=== PATIENT | male | born 1990 | race Caucasian/White ===

== ENCOUNTER 2021-10-03 15:07 | Emergency (ER) | payer OTHER, SELFPAY ==
[2021-10-03] VITALS (12 sets, daily range): BP systolic 179–259; BP diastolic 114–139; PULSE 89–109; RESP 14–31; TEMP 37; O2SAT 95–99; BMI 30.7
--- NOTE | 2021-10-03 18:32 | DI.RAD.S_ITS ---
PROCEDURE: XR CHEST 1V INDICATIONS: chest pain TECHNIQUE: One view of the chest was acquired. COMPARISON: None. FINDINGS: Surgical changes and devices: None. Lungs and pleura: Lungs are clear. No pleural effusions or pneumothorax. Mediastinum: Mediastinal contours appear normal. Heart size is normal. Bones and chest wall: No suspicious bony lesions. Overlying soft tissues appear unremarkable. IMPRESSION: No acute cardiopulmonary disease process. Dictated by: Geneva Matthews MD, PhD on 10/03/2021 at 17:48 Approved by: Geneva Matthews MD, PhD on 10/03/2021 at 17:50
--- NOTE | 2021-10-03 18:45 | PC.NURSE ---
Patient reports that he had 1-2 nosebleeds a day for 3 days, decided to check his BP at home and saw that it was high, went to [facility] for evaluation of nosebleed and BP. Denies any medical hx, denies taking home meds, denies any other symptoms of elevated BP.
[2021-10-03 18:54] LABS: Prothrombin Time 11.8 SECONDS (10.1-12.7)
[2021-10-03 18:55] LABS: Add Manual Diff / Slide Review NO; Basophils Absolute Auto 0 /uL (0-100); Basophils Percent Auto 0.5 % (0-2); Eosinophils Absolute Auto 100 /uL (0-450); Eosinophils Percent Auto 0.6 % (2-4); Hematocrit 44.6 % (41-53); Hemoglobin 15.4 g/dL (13.5-17.5); Lymphocytes Absolute Auto 2100 /uL (1100-4500); Lymphocytes Percent Auto 22.6 % (25-40); Mean Corpuscular HGB Conc 34.5 % (30-36); Mean Corpuscular Hemoglobin 26.8 PG (26-34); Mean Corpuscular Volume 77.6 fL (80-100); Monocytes Absolute Auto 600 /uL (0-900); Monocytes Percent Auto 6.2 % (3-14); Neutrophils Absolute Auto 6400 /uL (1500-7000); Neutrophils Percent Auto 70.1 % (50-75); Platelet Count 273 X10^3/uL (150-400); Red Blood Cell Count 5.75 X10^6/uL (4.5-5.9); Red Cell Distribution Width 14.2 % (11.6-14.8); White Blood Cell Count 9.1 X10^3/uL (4.5-11.0)
[2021-10-03 18:56] LABS: PTT Partial Thromboplastin Tim 37 SECONDS (26.4-36.2)
[2021-10-03 19:01] LABS: Alanine Aminotransferase 29 IU/L (<50); Albumin 4.9 g/dL (3.5-5.0); Albumin Globulin Ratio 1.4 (1.0-2.8); Alkaline Phosphatase 111 U/L (38-126); Aspartate Aminotransferase 31 IU/L (17-59); BUN Creatinine Ratio 12.4 (6-22); Bilirubin Total 0.7 mg/dL (0.2-1.3); Blood Urea Nitrogen 11 mg/dL (9-20); Calcium 9.8 mg/dL (8.4-10.2); Carbon Dioxide 27 mmol/L (22-32); Chloride 105 mmol/L (98-107); Creatine Kinase 82 U/L (55-170); Estimated Glomerular Filt Rate > 60.0 mL/min (>60); Globulin 3.6 g/dL (1.7-4.1); Glucose 93 mg/dL (70-100); HEMOLYSIS 20 (0-50); Lipase 47 U/L (23-300); Potassium 3.9 mmol/L (3.4-5.1); Sodium 139 mmol/L (137-145); Total Protein 8.5 g/dL (6.3-8.2)
[2021-10-03 19:13] LABS: Troponin I < 0.012 ng/mL (0.01-0.034)
--- NOTE | 2021-10-03 19:33 | ED_ITS ---
HPI - General Adult General Chief complaint: Hypertension Stated complaint: Blood pressure high 250/150 Time Seen by Provider: 10/03/21 18:54 Source: patient Mode of arrival: Ambulatory History of Present Illness HPI narrative: Patient is a 31-year-old with no past medical history presenting today with hypertension. He says that both his father and brother have hypertension in dad has a history of strokes as well. He has noticed that his blood pressure has been high over last 1 week he had a few nosebleeds which is out of the ordinary for him. He took his blood pressure noticed it to be elevated. Today his blood pressure in the ED is quite elevated with blood pressure of 250/150. He denies any chest pain, shortness of breath headache numbness tingling or weakness. He is currently not having any nosebleed. Related Data Previous Rx's Medication Instructions Recorded hydrochlorothiazide 25 mg tablet 25 mg PO DAILY #30 tab 10/03/21 Allergies Allergy/AdvReac Type Severity Reaction Status Date / Time No Known Drug Allergies Allergy Verified 10/03/21 20:21 Review of Systems Review of Systems Narrative: GENERAL: Denies chills, fatigue, malaise, fever, sweats, travel HEENT: See HPI RESPIRATORY: Denies dyspnea, cough, wheezing, hemoptysis, sputum. CARDIOVASCULAR: Denies chest pain, palpitations, orthopnea, edema GASTROINTESTINAL: Denies nausea, vomiting, abdominal pain, diarrhea, constipation, melena. : Denies dysuria, frequency, incontinence, hematuria, urinary retention, flank pain. MUSCULOSKELETAL: Denies weakness, joint pain, or bony pain SKIN: No rash, no erythema, no pruritus NEUROLOGIC: Denies weakness, dizziness, headache, numbness, change in speech, confusion PSYCHIATRIC: No concerning psychosocial issues. 12 point review of systems is negative except for those stated above and HPI Patient History Social History Smoking Status: Never smoker Smoking Status: Never smoker Substance Use Type: does not use Exam Initial Vital Signs Initial Vital Signs: Vital Signs Temperature 98.6 F 10/03/21 15:39 Pulse Rate 109 H 10/03/21 15:39 Respiratory Rate 14 10/03/21 15:39 Blood Pressure 259/130 H 10/03/21 15:39 Pulse Oximetry 99 10/03/21 15:39 GENERAL: Well-appearing, well-nourished and in no acute distress. HEENT: Head atraumatic,EOMI, pupils reactive, face symmetric, moist mucous membranes CARDIOVASCULAR: Regular rate and rhythm without murmurs, rubs or gallops. RESPIRATORY: Breath sounds equal bilaterally, no wheezes rales or rhonchi. ABDOMEN: Soft, nontender. Normoactive bowel sounds all 4 quadrants. No guarding or rebound. EXTREMITIES: Normal range of motion, no clubbing or edema. Neurovascularly intact NEUROLOGICAL: Alert and oriented x4.Normal gait and speech. SKIN: Warm, dry, no laceration, no petechiae, no rashes or lesions. Course Orders Ordered: ED Orders 10/03/21 18:32 XR chest 1V Stat 10/03/21 18:40 Complete Blood Count AUTO DIFF Stat Comprehensive Metabolic Panel Stat Lipase Stat Magnesium Stat Partial Thromboplastin Time Stat Prothrombin Time INR Stat Troponin & CK Cardiac Panel Stat 10/03/21 18:48 EKG-12 Lead Stat Discontinued Medications Hydromorphone HCl (Hydromorphone 1 Mg Inj) 1 mg IV NOW ONE Stop: 10/03/21 19:48 Last Admin: 10/03/21 20:13 Dose: Not Given Documented by: RIAZ Labetalol HCl (Labetalol 20 Mg/4 Ml Syringe) 10 mg IV NOW ONE Stop: 10/03/21 20:38 Last Admin: 10/03/21 20:45 Dose: 10 mg Documented by: GLORIA Vital Signs Vital signs: Vital Signs - 8 hr 10/03/21 19:24 10/03/21 19:30 10/03/21 20:00 Pulse Rate 93 H 97 H 96 H Respiratory Rate 14 24 19 Blood Pressure 211/126 H 179/115 H 184/121 H Pulse Oximetry 99 97 96 10/03/21 20:29 10/03/21 20:30 10/03/21 20:45 Pulse Rate 97 H 95 H Respiratory Rate 22 17 Blood Pressure 194/123 H 194/123 H Pulse Oximetry 95 95 10/03/21 21:00 10/03/21 21:16 Pulse Rate 89 Respiratory Rate 31 H Blood Pressure 195/130 H 187/114 H Pulse Oximetry 95 Medical Decision Making Lab Data Result diagrams: 10/03/21 18:40 10/03/21 18:40 Labs: Lab Results 10/03/21 10/03/21 10/03/21 Range/Units 18:40 18:40 18:40 WBC 9.1 (4.5-11.0) X10^3/uL RBC 5.75 (4.5-5.9) X10^6/uL Hgb 15.4 (13.5-17.5) g/dL Hct 44.6 (41-53) % MCV 77.6 L (80-100) fL MCH 26.8 (26-34) PG MCHC 34.5 (30-36) % RDW 14.2 (11.6-14.8) % Plt Count 273 (150-400) X10^3/uL Neut % (Auto) 70.1 (50-75) % Lymph % (Auto) 22.6 L (25-40) % [place] % (Auto) 6.2 (3-14) % Eos % (Auto) 0.6 L (2-4) % Baso % (Auto) 0.5 (0-2) % Neut # (Auto) 6400 (0949-6497) /uL Lymph # (Auto) 2100 (4042-1184) /uL [place] # (Auto) 600 (0-900) /uL Eos # (Auto) 100 (0-450) /uL Baso # (Auto) 0 (0-100) /uL PT 11.8 (10.1-12.7) SECONDS INR 1.0 (0.9-1.3) APTT 37 H (26.4-36.2) SECONDS Sodium 139 (137-145) mmol/L Potassium 3.9 (3.4-5.1) mmol/L Chloride 105 (98-107) mmol/L Carbon Dioxide 27 (22-32) mmol/L BUN 11 (9-20) mg/dL Creatinine 0.89 (0.66-1.25) mg/dL Estimated GFR > 60.0 (>60) mL/min BUN/Creatinine Ratio 12.4 (6-22) Glucose 93 (70-100) mg/dL Calcium 9.8 (8.4-10.2) mg/dL Magnesium 2.0 (1.6-2.3) mg/dL Total Bilirubin 0.7 (0.2-1.3) mg/dL AST 31 (17-59) IU/L ALT 29 (<50) IU/L Alkaline Phosphatase 111 (38-126) U/L Total Creatine Kinase 82 (55-170) U/L CK-MB (CK-2) TNP CK-MB (CK-2) Rel Index TNP Troponin I < 0.012 (0.01-0.034) ng/mL Total Protein 8.5 H (6.3-8.2) g/dL Albumin 4.9 (3.5-5.0) g/dL Globulin 3.6 (1.7-4.1) g/dL Albumin/Globulin Ratio 1.4 (1.0-2.8) Lipase 47 (23-300) U/L Urine Dip Bedside Urine Glucose Negative Bedside Urine Bilirubin - Negative Bedside Urine Ketone - Negative Urine Specific [place] 1.030 Bedside Urine Occult Blood - Negative Bedside Urine pH 6.0 Bedside Urine Protein - Negative Bedside Urine Urobilinogen - Negative Bedside Urine Nitrite - Negative Bedside Urine Leukocytes - Negative Esterase Point of care testing: Urine Dip Bedside Urine Glucose Negative Bedside Urine Bilirubin - Negative Bedside Urine Ketone - Negative Urine Specific [place] 1.030 Bedside Urine Occult Blood - Negative Bedside Urine pH 6.0 Bedside Urine Protein - Negative Bedside Urine Urobilinogen - Negative Bedside Urine Nitrite - Negative Bedside Urine Leukocytes - Negative Esterase Imaging Data Chest x-ray: Radiologist's Impression: PROCEDURE:? XR CHEST 1V ? INDICATIONS:? chest pain ? TECHNIQUE:? One view of the chest was acquired.? ? COMPARISON:? None. ? FINDINGS:? ? Surgical changes and devices:? None.? ? Lungs and pleura:? Lungs are clear.? No pleural effusions or pneumothorax.? ? Mediastinum:? Mediastinal contours appear normal.? Heart size is normal.? ? Bones and chest wall:? No suspicious bony lesions.? Overlying soft tissues appear unremarkable.? ? IMPRESSION:? No acute cardiopulmonary disease process. ? ? Dictated by: Geneva Matthews MD, PhD on 10/03/2021 at 17:48 ? ? ECG Data Interpretation: Normal sinus rhythm rate 93 NE interval 134 QRS 84 QTC 422 T-wave inversion noted in lead [address] changes priors to compare. MDM Narrative Medical decision making narrative: Patient is completely asymptomatic with a quite elevated blood pressure. It actually remained persistently elevated for very long emergency department visit. Labetalol did help bring it down to 187/114. He does not have a primary care provider I will start him on hydrochlorothiazide. Blood work does not show any evidence of end-organ damage. Discussed with him about monitoring at home, and when to return to ED. Discharge Plan Departure Patient Disposition: Home Clinical Impression: Hypertension Instructions: DI for High Blood Pressure Activity Restrictions/Additional Instructions: *You have been diagnosed with hypertension *What to do: Please check her blood pressure once a day and write it down. He will likely need more than 1 blood pressure medication. You also definitely need further workup. Her blood pressure is noted to be quite elevated. *Continue to take medications as directed Hydrochlorothiazide 25 mg once a day *Follow up with your primary care provider in 2-3 days or call [phone] *Return to ER if you should have headache, chest pain, shortness of breath, visual changes, numbness tingling weakness or persistently elevated blood pressure with top number greater than 190 any new, worsening or concerning symptoms Prescriptions: New hydrochlorothiazide 25 mg tablet 25 mg PO DAILY Qty: 30 0RF Referrals: Miscellaneous,DoctorMD [Primary Care Provider] -
[2021-10-03] MEDS: LABETALOL 20 MG/4 ML SYRINGE 10 MG IV (20:45)
--- NOTE | 2021-10-04 13:10 | PC.NURSE ---
Father called to ED requesting a ferry pass. Informed that the ED could not give ferry passes for able bodied. [place] offered to [place] in the script to a local pharmacy to ensure his son had the medication needed. Pt states this is garbage and hung up.
== END 2021-10-03 21:18 | disposition home or self-care (01) ==
PROVIDERS: Emergency Medicine; Emergency Provider Emergency Medicine
DX: I10 Essential (primary) hypertension (principal)
CPT/HCPCS: 36415; 71045; 80053; 81003; 82550; 83690; 83735; 84484; 85025; 85610; 85730; 93005; 93010; 96374; 99284